=== PATIENT | male | born 1995 | race Caucasian/White ===

== ENCOUNTER 2021-08-27 09:14 | Outpatient (REF) | payer BC, SELFPAY ==
--- NOTE | ~2021-08-27 | XR_ITS ---
EXAMINATION: CHEST AND LEFT RIB X-RAYS CLINICAL INFORMATION: Left rib fractures COMPARISON: None TECHNIQUE: PA and lateral chest. 4 views of the left ribs FINDINGS: The cardiac and mediastinal contours are normal. There is a 1 cm nodule that projects over the left lateral costophrenic angle. It is uncertain whether this represents a true pulmonary nodule could represent a nipple shadow. The lungs are otherwise clear. There is no pleural effusion or pneumothorax. There are left posterior lateral fourth and fifth rib fractures. Bony structures are otherwise unremarkable. XR/XR ribs LT 2V IMPRESSION: No evidence for acute disease in the chest. Left fourth and fifth posterior lateral rib fractures. 1 cm nodule at the left lung base. It is uncertain whether this represents a pulmonary nodule could be related to a nipple shadow. Follow-up chest x-ray with nipple markers or chest CT scan recommended.
--- NOTE | ~2021-08-27 | XR_ITS ---
EXAMINATION: CHEST AND LEFT RIB X-RAYS CLINICAL INFORMATION: Left rib fractures COMPARISON: None TECHNIQUE: PA and lateral chest. 4 views of the left ribs FINDINGS: The cardiac and mediastinal contours are normal. There is a 1 cm nodule that projects over the left lateral costophrenic angle. It is uncertain whether this represents a true pulmonary nodule could represent a nipple shadow. The lungs are otherwise clear. There is no pleural effusion or pneumothorax. There are left posterior lateral fourth and fifth rib fractures. Bony structures are otherwise unremarkable. XR/XR chest 2V IMPRESSION: No evidence for acute disease in the chest. Left fourth and fifth posterior lateral rib fractures. 1 cm nodule at the left lung base. It is uncertain whether this represents a pulmonary nodule could be related to a nipple shadow. Follow-up chest x-ray with nipple markers or chest CT scan recommended.
== END 2021-08-27 09:15 | disposition home or self-care (01) ==
LOC: HO.XRAY 09:14
PROVIDERS: PCP Internal Medicine; Visit Provider Internal Medicine
DX: S22.43XA Multiple fractures of ribs, bilateral, initial encounter for closed fracture (principal); J93.9 Pneumothorax, unspecified
CPT/HCPCS: 71046; 71100

== ENCOUNTER 2021-09-02 10:19 | Outpatient (REF) | payer BC, SELFPAY ==
--- NOTE | ~2021-09-02 | XR_ITS ---
EXAMINATION: CHEST AND LEFT RIBS. CLINICAL INFORMATION: Pneumothorax. COMPARISON: None TECHNIQUE: Chest 2 views. Left RIBS 3 views. FINDINGS: Chest: Both lungs are fairly well-expanded and clear of acute pneumonic process. The heart size and pulmonary vascularity is normal. Left RIBS: Multiple views of left ribs reveal minimally displaced left lateral fourth rib fracture. There is mild subpleural thickening but no pneumothorax. No additional fracture seen. XR/XR ribs LT 2V IMPRESSION: Unremarkable chest exam. Minimally displaced left lateral fourth rib fracture with subpleural thickening but no pneumothorax or effusion seen.
--- NOTE | ~2021-09-02 | XR_ITS ---
EXAMINATION: CHEST AND LEFT RIBS. CLINICAL INFORMATION: Pneumothorax. COMPARISON: None TECHNIQUE: Chest 2 views. Left RIBS 3 views. FINDINGS: Chest: Both lungs are fairly well-expanded and clear of acute pneumonic process. The heart size and pulmonary vascularity is normal. Left RIBS: Multiple views of left ribs reveal minimally displaced left lateral fourth rib fracture. There is mild subpleural thickening but no pneumothorax. No additional fracture seen. XR/XR chest 2V IMPRESSION: Unremarkable chest exam. Minimally displaced left lateral fourth rib fracture with subpleural thickening but no pneumothorax or effusion seen.
== END 2021-09-02 10:20 | disposition home or self-care (01) ==
LOC: HO.XRAY 10:19
PROVIDERS: PCP Internal Medicine; Visit Provider Internal Medicine
DX: J93.9 Pneumothorax, unspecified (principal)
CPT/HCPCS: 71046; 71100

== ENCOUNTER 2021-09-26 16:13 | Outpatient (REF) | payer BC, SELFPAY ==
--- NOTE | ~2021-09-26 | MR_ITS ---
EXAMINATION: MR KNEE WITHOUT CONTRAST, RIGHT CLINICAL INFORMATION: Right knee pain COMPARISON: None TECHNIQUE: MRI of the knee without contrast was performed using routine sequences on a high-field scanner. FINDINGS: MENISCI: Medial Meniscus: Intact Lateral Meniscus: Intact LIGAMENTS: Cruciate: Anterior cruciate ligament is completely torn. The posterior cruciate ligament is intact. Collateral: Complete or near complete tear of the proximal MCL. The lateral collateral ligament complex appears intact. EXTENSOR MECHANISM: Intact ARTICULAR CARTILAGE/BONE: Patellofemoral Compartment: Normal Medial Compartment: Normal Lateral Compartment: Mild residual bone marrow edema the posterior aspect of the tibia and the anterolateral aspect of the lateral femoral condyle. JOINT FLUID AND BURSAE: Moderate joint effusion. MR/MR knee RT wo con IMPRESSION: Subacute complete ACL tear and a complete or near complete tear of the proximal MCL. Moderate joint effusion. No meniscal tear.
== END 2021-09-26 16:14 | disposition home or self-care (01) ==
LOC: HO.MRI 16:13
PROVIDERS: Visit Provider Physician Assistant
DX: S83.241A Other tear of medial meniscus, current injury, right knee, initial encounter (principal)
CPT/HCPCS: 73721

== ENCOUNTER 2022-08-26 10:16 | Outpatient (REF) | payer BC, SELFPAY ==
--- NOTE | ~2022-08-26 | XR_ITS ---
EXAMINATION: XR CHEST CLINICAL INFORMATION: Cough COMPARISON: Previous chest x-ray most recent September 2021 TECHNIQUE: 2 views of the chest were obtained. FINDINGS: No significant abnormality is noted involving the heart, lungs, mediastinum, bony thorax or soft tissues. XR/XR chest 2V IMPRESSION: Unremarkable examination.
== END 2022-08-26 10:17 | disposition home or self-care (01) ==
LOC: HO.XRAY 10:16
PROVIDERS: PCP Internal Medicine; Visit Provider Physician Assistant
DX: R05.9 Cough, unspecified (principal)
CPT/HCPCS: 71046

== ENCOUNTER 2023-07-12 15:47 | Outpatient (REF) | payer BC, SELFPAY ==
--- NOTE | ~2023-07-12 | MR_ITS ---
EXAMINATION: MR KNEE WITHOUT CONTRAST, RIGHT CLINICAL INFORMATION: Right knee pain and swelling. Anterior cruciate ligament reconstruction in October 2021. Injury in April 2023. Effusion. COMPARISON: Right knee MRI dated 09/26/2021. TECHNIQUE: MRI of the knee without contrast was performed using routine sequences on a high-field scanner. FINDINGS: MENISCI: Medial Meniscus: Intact Lateral Meniscus: Intact LIGAMENTS: Cruciate: Postsurgical change consistent with anterior cruciate ligament reconstruction. Increased T2 signal associated with the graft, consistent with mild degeneration. The anterior aspect of the graft fibers appears heterogeneous with a possible anterior partial tear measuring up to 1.4 cm in craniocaudal dimension. There is anteriorly displaced low T1/low T2 signal measuring up to 1.2 cm (sagittal image 17/) which could represent a displaced ligament flap versus focal arthrofibrosis. Mild adjacent soft tissue edema. Intact posterior cruciate ligament. Collateral: Intact EXTENSOR MECHANISM: Intact quadriceps and patellar tendons. Normal patellofemoral alignment. Prominent medial patellar plica without associated edema or arthropathy. ARTICULAR CARTILAGE/BONE: Patellofemoral Compartment: Intact articular cartilage. Medial Compartment: Intact articular cartilage. Lateral Compartment: Intact articular cartilage. JOINT FLUID AND BURSAE: Moderate joint effusion and trace Cancino's cyst with mild synovitis. MR/MR knee RT wo con IMPRESSION: 1. Postsurgical change consistent with anterior cruciate ligament reconstruction. The anterior graft fibers appear heterogeneous with a possible anterior partial tear measuring up to 1.4 cm in craniocaudal dimension. Anterior displacement of the graft fibers measuring up to 1.2 cm which could represent a displaced ligament flap versus focal arthrofibrosis. Mild adjacent soft tissue edema. 2. No meniscal tear. 3. Moderate joint effusion and trace Cancino's cyst with mild synovitis.
== END 2023-07-12 15:48 | disposition home or self-care (01) ==
LOC: HO.MRI 15:47
PROVIDERS: PCP Physician Assistant; Visit Provider Physician Assistant
DX: M25.461 Effusion, right knee (principal)
CPT/HCPCS: 73721

== ENCOUNTER 2023-11-01 16:10 | Outpatient (REF) | payer BC, SELFPAY ==
[2023-11-06 14:18] LABS: Testosterone, Free 63.2 pg/mL (35.0-155.0); Testosterone, Total 319 ng/dL (250-1100)
== END 2023-11-01 16:11 | disposition home or self-care (01) ==
LOC: HO.MANLDS 16:10
PROVIDERS: Visit Provider Physician Assistant
DX: R89.1 Abnormal level of hormones in specimens from other organs, systems and tissues (principal)
CPT/HCPCS: 36415; 84402; 84403